=== PATIENT | male | born 2005 | race Caucasian/White ===

== ENCOUNTER 2023-11-27 17:30 | Emergency (ER) | payer OTHER, SELFPAY ==
[2023-11-27 17:32] VITALS: BP 149/83
[2023-11-27] MEDS: ADRENALIN 0.299999999999999989 MG IM (17:48)
[2023-11-27] MEDS: PEPCID 20 MG IV (17:50)
--- NOTE | 2023-11-27 17:50 | ED.GENMED ---
History of Present Illness
General
Chief Complaint: Allergic Reaction
Source: patient and family
Exam Limitations: none
Time Seen by Provider: 11/27/23 17:42
Nursing documentation reviewed up to this point in time: agreed with
Travel History
Have you had any contact with someone who has COVID-19?: No
Do you have any symptoms of coronavirus? Fever > 100 degrees, chills, cough, shortness of breath, sore throat, loss of taste or smell, muscle aches, or headache?: No
History of Present Illness
History of Present Illness:
Patient is a 18-year-old male who presents to the ER for acute allergic reaction. Patient has a history of nut allergy and had cheesecake prior to arrival which had almonds. He started to feel scratchy swelling sensation in the back of his throat.
He took 50 mg of Benadryl and presented to the ER. Father does report his voice seems slightly hoarse. Patient is also very red. Patient feels anxious but denies any actual difficulty breathing presently.
Past History
Social History
Tobacco: Non-smoker
Alcohol: None
Review of Systems
Review of Systems
Allergies reviewed?: Yes
All Other Systems: ROS reviewed and negative except as documented in HPI and ROS
Constitutional: Reports no symptoms; Denies fever, fatigue or chills
EENT: Reports other (throat felt funny 'swelling senation'ship's captain + hoarse voice )
Respiratory: Reports no symptoms
Cardiac: Reports no symptoms
ABD/GI: Reports no symptoms; Denies nausea or vomiting
: Reports no symptoms
Musculoskeletal: Reports no symptoms
Skin: Reports other (skin is red ); Denies rash
Neurological: Reports no symptoms
Psychiatric: Reports no symptoms
Phy Exam
General Physical Exam
General Presentation: no apparent distress
General age: appears stated age
General Skin: warm and dry
General Habitus: normal
General Mental: alert
General Hydration: appears well hydrated
ENT Exam
ENT Exam: other (No drooling no lip or tongue swelling)
Cardiovascular Exam
Cardiovascular Exam: tachycardia
Pulmonary Exam
Pulmonary Exam: lungs clear and no respiratory distress
Neurological Exam
Neurological Exam: alert and oriented x3
Musculoskeletal Exam
Musculoskeletal Exam: full ROM
Skin Exam
Skin Exam: normal color, warm/dry and other ( generalized skin redness no hives)
Psychiatric Exam
Psychiatric Exam: normal mood/affect
Course
Orders/Labs/Results
Orders:
Orders
11/27/23 17:43
0.9% Sodium Chloride 1000 ml [Nss] 1,000 ml IV BOLUS
Dexamethasone Sod Phosphate [Decadron] 10 mg IV NOW STA
Diphenhydramine [Benadryl] 50 mg IV NOW STA
EPINEPHrine PF [Adrenalin] 0.3 mg IM NOW STA
Famotidine [Pepcid] 20 mg IV NOW STA
11/27/23 18:54
Diphenhydramine [Benadryl] 25 mg IV NOW STA
Vital Signs
Initial and Last Documented VS:
Initial Vital Signs
Temp Pulse Resp BP Pulse Ox
97.5 F 99 18 149/83 100
11/27/23 17:32 11/27/23 17:32 11/27/23 17:32 11/27/23 17:32 11/27/23 17:32
Last Documented Vital Signs
Temp Pulse Resp BP Pulse Ox
97.5 F 110 19 114/80 99
11/27/23 17:32 11/27/23 21:15 11/27/23 21:15 11/27/23 21:00 11/27/23 21:15
MDM/Problems Addressed
Differential Diagnosis Includes:
Not limited to allergic reaction, hives, anaphylaxis
MDM/Problems Addressed:
Patient is a 18-year-old male presents with history of nut allergy. Patient hoarseness and tight sensation of throat. Took 50 mg Benadryl prior to arrival he presents with redness to the skin throughout sounds mildly hoarse however airway is
patent no lip or tongue swelling lungs are clear no wheezing, and nonhypoxic. Patient was ordered IM epi Decadron Pepcid and fluids.
1854: Father reports redness is now coming back to his bilateral hands. Patient does feel itchy in his hands. He however denies any airway symptoms denies any throat tightness sensation or difficulty breathing lungs are clear not hypoxic. He is
tachycardic likely from epi as well. Will give another dose of Benadryl
2126 patient was monitored here feels much better skin color: Improved no acute distress lungs are clear will DC home. Patient has an EpiPen I did review instructions on how to use EpiPen. Will give a short course of steroids as needed for the
next 4 days. Instructed patient to take Benadryl every 4-6 hours for the next 24 hours
Chronic conditions affecting care:
Nut allergy
*Pulse Oximetry
Patient hypoxic: no
*Critical Care Note
Total Time (30-74mins, 75-104mins- exclusive of procedures): Not Applicable
ED Attending Note
-
Portions of this chart may have been created with voice recognition software.� Occasional wrong word or��sound alike� substitutions may have occurred due to the inherent limitations of voice recognition software.
Discharge Plan
Departure
Patient Disposition: Home (Routine Discharge)
Date of Disposition: 11/27/23
Time of Disposition: 21:28
Patient with high blood pressure during this ER visit?: No
Covid-19: Not Applicable
Discharge Problem:
Allergic reaction
Prescriptions:
New
prednisone 50 mg tablet
50 mg PO DAILY Qty: 4 0RF
No Action
epinephrine [EpiPen Jr 2-Isac] 0.15 MG/0.3 ML auto-injector
0.15 mg IM ONCE PRN (Reason: severe allergic reaction) Qty: 1 1RF
Rx Instructions:
IM injection as needed for severe allergic reaction, may repeat dose X 1
prednisolone sodium phosphate [Orapred ODT] 10 MG tablet,disintegrating
10 mg PO DAILY Qty: 5 0RF
epinephrine [EpiPen] 0.3 MG/0.3/SYRINGE auto-injector
0.3 mg IM .STAT PRN (Reason: difficulty breathing) Qty: 1 0RF
prednisone 20 MG tablet
20 mg PO DAILY Qty: 4 0RF
diphenhydramine HCl [Banophen] 25 MG capsule
25 mg PO Q4HPRN PRN (Reason: rash, diff breathing, allergic) Qty: 20 0RF
Referrals:
Matthew Ferrer, [Family Provider] -
Activity Restrictions/Additional Instructions:
You were seen here today for allergic reaction. As discussed you may take 25 to 50 mg of Benadryl every 4-6 hours for the next 24 hours. A prescription for steroids was sent to your pharmacy take as directed daily for the next 4 days as needed.
Return if any worsening of symptoms or difficulty breathing worsening rash or any further concerns.
Interventions
Interventions:
*Risk Screen - Suicide Last Done: 11/27/23 17:32
*General Assessment Last Done: 11/27/23 17:32
*Neglect/Abuse Screening Last Done: 11/27/23 17:32
*ED COVID-19 Vaccine History Last Done: 11/27/23 17:32
ED- Cardiac Assessment Last Done: 11/27/23 17:43
ED- Pulmonary Assessment Last Done: 11/27/23 17:43
ED-Skin Assessment Last Done: 11/27/23 17:43
[2023-11-27] MEDS: DECADRON 10 MG IV (17:51)
[2023-11-27] MEDS: NSS 1000 IV (17:56)
[2023-11-27 19:00] VITALS: BP 122/67
[2023-11-27] MEDS: BENADRYL 25 MG IV (19:05)
[2023-11-27 20:01] VITALS: BP 105/66
[2023-11-27 21:00] VITALS: BP 114/80
== END 2023-11-27 21:39 | disposition home or self-care (01) ==
LOC: EMR 17:30
PROVIDERS: EMERGENCY PHYSICIAN Emergency Medicine; FAMILY PHYSICIAN Family Medicine
DX: R49.0 Dysphonia (principal); R21 Rash and other nonspecific skin eruption; T78.40XA Allergy, unspecified, initial encounter
CPT/HCPCS: 99284; 96374; 96375 ×2; 96372